=== PATIENT | male | born 1990 | race Caucasian/White ===

== ENCOUNTER 2016-09-30 19:52 | Emergency (ER) | payer BC ==
--- NOTE | 2016-09-30 21:04 | EDM.PDOC ---
ED HPI GENERAL MEDICAL PROBLEM - General Stated Complaint: LOW BACK PAIN/KIDNEY RELATED Time Seen by Provider: 09/30/16 20:10 Source of Information: Reports: Patient History Limitations: Reports: No limitations - History of Present Illness INITIAL COMMENTS - FREE TEXT/NARRATIVE: HISTORY AND PHYSICAL: History of present illness: Patient is an otherwise healthy 25-year-old male who presents to the emergency department today with right flank pain. He states he sneezed on Thursday or Thursday and felt a sharp pain in this area of his back. He assumed it was just related to muscle strain and kind of ignored it for a couple of days. Today the pain seemed to be worse and also is the fact that it was not improving at all, he decided to come in. The only thing that makes it worse is movement. It does not radiate anywhere. No abdominal pain. No nausea vomiting or fevers. No dysuria or hematuria. No medical history of back problems or injuries and he has never had a kidney stone in the past. Review of systems: As per history of present illness and below otherwise all systems reviewed and negative. Past medical history: As per history of present illness and as reviewed below otherwise noncontributory. Surgical history: As per history of present illness and as reviewed below otherwise noncontributory. Social history: No reported history of drug or alcohol abuse. Family history: As per history of present illness and as reviewed below otherwise noncontributory. Physical exam: HEENT: Atraumatic, normocephalic. Lungs: Clear to auscultation, breath sounds equal bilaterally, chest nontender. Heart: Regular rate and rhythm. Abdomen: Soft, nondistended, nontender. Negative for masses or hepatosplenomegaly. Negative for costovertebral tenderness. Back: No vertebral point tenderness or step-offs. Patient has no tenderness paravertebrally with palpation. His pain is only with movement. Pelvis: Stable nontender. Genitourinary: Deferred. Rectal: Deferred. Extremities: Atraumatic, normal range of motion and muscle strength in the lower extremities. Neurovascular unremarkable. Neuro: Awake, alert, oriented. Cranial nerves II through XII unremarkable. Cerebellum unremarkable. Motor and sensory unremarkable throughout. Exam nonfocal. Therapeutics: Diclofenac, Flexeril prescriptions Impression: Back strain Plan: I do not feel the patient's symptoms are related to anything systemically aortic the kidneys. His pain is more consistent with muscle strain as is his history of sneezing the pain at that time. He is neurologically intact and has no other symptoms. He declined any intramuscular therapy and I gave him the chance for diclofenac and Flexeril and given instructions on how to use these. I also told him to followup with his primary care doctor in 5-7 days if his symptoms do not seem to be improving. He denied any questions or concerns and was discharged in stable condition. Definitive disposition and diagnosis as appropriate pending reevaluation and review of above. Right Middle Back Pain Score (Numeric/FACES): 7 - Related Data Allergies Allergy/AdvReac Type Severity Reaction Status Date / Time No Known Allergies Allergy Verified 09/30/16 20:05 Home Meds: Home Meds . [No Known Home Meds] 01/07/15 [History] Past Medical History - Past Health History Medical/Surgical History: Denies Medical/Surgical History - Infectious Disease History Infectious Disease History: Reports: Chicken pox - Past Surgical History Other Musculoskeletal Surgeries/Procedures:: fracture right femur, has baldev and screws Social & Family History - Family History Family Medical History: Noncontributory - Tobacco Use Smoking Status *Q: Never Smoker Second Hand Smoke Exposure: No - Caffeine Use Caffeine Use: Reports: Soda Caffeine Use Comment: 1drink/day - Recreational Drug Use Recreational Drug Use: No ED ROS GENERAL - Review of Systems Review Of Systems: ROS reveals no pertinent complaints other than HPI. ED EXAM, GENERAL - Physical Exam Exam: See Below (See history of present illness) Course - Vital Signs Last Recorded V/S: Last Vital Signs Temp 35.9 C 09/30/16 20:01 Pulse 77 09/30/16 20:01 Resp 18 09/30/16 20:01 BP 150/100 H 09/30/16 20:01 Pulse Ox 97 09/30/16 20:01 Departure - Departure Time of Disposition: 21:03 Disposition: Home, Self-Care 01 Condition: good Clinical Impression: Back strain Qualifiers: Encounter type: initial encounter Qualified Code(s): S39.012A - Strain of muscle, fascia and tendon of lower back, initial encounter Instructions: Back Pain, Adult Referrals: PCP,None [Primary Care Provider] - Forms: ED Department Discharge Additional Instructions: The following information is given to patients seen in the emergency department who are being discharged to home. This information is to outline your options for follow-up care. We provide all patients seen in our emergency department with a follow-up referral. The need for follow-up, as well as the timing and circumstances, are variable depending upon the specifics of your emergency department visit. If you don't have a primary care physician on staff, we will provide you with a referral. We always advise you to contact your personal physician following an emergency department visit to inform them of the circumstance of the visit and for follow-up with them and/or the need for any referrals to a consulting specialist. The emergency department will also refer you to a specialist when appropriate. This referral assures that you have the opportunity for follow-up care with a specialist. All of these measure are taken in an effort to provide you with optimal care, which includes your follow-up. Under all circumstances we always encourage you to contact your private physician who remains a resource for coordinating your care. When calling for follow-up care, please make the office aware that this follow-up is from your recent emergency room visit. If for any reason you are refused follow-up, please contact the [facility] at and asked to speak to the emergency department charge nurse. [facility] [address] [id number]
[2016-10-01 01:13] VITALS: BP 147/97
== END 2016-09-30 21:08 | disposition home or self-care (01) ==
LOC: MW.ED 19:52
DX: S39.012A Strain of muscle, fascia and tendon of lower back, initial encounter (principal); X58.XXXA Exposure to other specified factors, initial encounter
CPT/HCPCS: 99283